=== PATIENT | female | born 1975 | race Caucasian/White ===

== ENCOUNTER 2016-08-08 10:20 | Outpatient (CLI) | payer OTHER | END 2016-08-08 23:00 | disposition home or self-care (01) | LOC: LAB SRH 10:20 | DX: Z11.1 Encounter for screening for respiratory tuberculosis (principal); Z11.3 Encounter for screening for infections with a predominantly sexual mode of transmission; Z79.899 Other long term (current) drug therapy | CPT/HCPCS: 90074; 90100; 91832; 95059; 98480 ==